=== PATIENT | female | born 1970 | race Caucasian/White ===

== ENCOUNTER → 2018-05-17 14:15 | Outpatient (CLI) | payer BC, SELFPAY ==
[2018-05-22 12:07] LABS: HPV Reflexed? NOT INDICATED
== END ==
PROVIDERS: Visit Provider Obstetrics & Gynecology
DX: Z12.4 Encounter for screening for malignant neoplasm of cervix (principal)
CPT/HCPCS: 88175; G0145

== ENCOUNTER → 2019-01-31 10:02 | Outpatient (CLI) | payer BC, SELFPAY ==
--- NOTE | 2019-01-31 11:12 | NEURO ---
NCS and/or EMG Patient Report HPI: Patient is a 48-year-old female who is complaining of numbness, tingling and pain in her right thumb and index finger as well as in the other fingers. Pain is radiating in the entire arm. Patient also feels that numbness in the fifth digit has been present over a year or so but lately getting worse. Patient wakes up from her sleep due to pain. Patient had cortisone injection in the night wrist which gave her some relief. Patient also complain of some neck pain but did not have any neck injury or fall. Patient had spasms in her neck about a year ago and had chiropractor adjustment. Patient also has some weakness in her right hand and dropping things from her right hand. Physical Exam: Right first dorsal interossei and abductor digiti minimi muscles atrophy. Mild sensory deficit in the right hand in all fingers. Tenderness of the right wrist. Tinel's sign slightly positive at the right wrist. Mild cervical spasm and tenderness in the right side. No tenderness of the right elbow, Tinel's sign negative at right elbow Findings: 1. There is prolongation of distal latencies of right median sensory and motor nerves responses. 2. Right ulnar sensory nerve response could not be obtained. 3. There is prolongation of the distal latency of the right ulnar motor nerve response with slowing of motor nerve conduction velocity below and above the right elbow, 4. There is decreased amplitudes of CMAPs of right proximal ulnar motor nerve response. 5. No evidence of denervation on needle examination of right upper extremity including right cervical paraspinal muscles. Impression: 1. Findings are consistent with moderately severe right median mononeuropathy at wrist due to carpal tunnel syndrome. 2. 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 3. No electrodiagnostic evidence of cervical radiculopathy or brachial plexopathy in right upper extremity. Recommendation: 1. Patient recommended to wear right elbow and hand splints as much as possible. 2. Patient recommended to avoid repetitive right hand movements and avoid sleeping or leaning on right elbow. 3. Although needle examination is normal, seeing the patient's right first dorsal interossei and abductor digiti minimi muscles atrophy, patient may need anterior transposition of right ulnar nerve as well as may need surgical release of carpal tunnel syndrome if symptoms continues.
== END ==
PROVIDERS: Referring Provider Physician Assistant; Visit Provider Physician Assistant
DX: G56.03 Carpal tunnel syndrome, bilateral upper limbs (principal)
CPT/HCPCS: 95886; 95909

== ENCOUNTER → 2019-04-17 14:52 | Outpatient (CLI) | payer BC, SELFPAY ==
[2019-04-17 18:34] LABS: Follicle Stimulating Hormone 102.1 mIU/mL
[2019-04-22 03:07] LABS: Age Gdln ACOG Testing 30-65 (.)
[2019-04-22 15:45] LABS: HPV APTIMA, High Risk Negative (Negative); HPV Reflexed? YES, CHARGE PATIENT
== END ==
PROVIDERS: Referring Provider Obstetrics & Gynecology; Visit Provider Obstetrics & Gynecology
DX: N91.2 Amenorrhea, unspecified (principal)
CPT/HCPCS: 36415; 83001; 87624; 88175; G0145

== ENCOUNTER → 2020-07-19 11:02 | Outpatient (CLI) | payer BC, SELFPAY ==
[2020-07-19 12:23] LABS: Vitamin D,25 Hydroxy 25.1 ng/mL
[2020-07-19 12:40] LABS: T4 Free Direct 0.93 ng/dL (0.76-1.46)
[2020-07-21 12:50] LABS: HPV APTIMA, High Risk Negative (Negative)
[2020-07-22 13:41] LABS: T4 Total, Thyroxin 7.2 ug/dL (4.8-13.9)
== END ==
PROVIDERS: Visit Provider Student in an Organized Health Care Education/Training Program
DX: Z12.4 Encounter for screening for malignant neoplasm of cervix (principal); M54.5 Low back pain; R35.1 Nocturia; N39.0 Urinary tract infection, site not specified
CPT/HCPCS: 36415; 82306; 84436; 84439; 84443; 87086; 87088; 87624; 88175; G0145

== ENCOUNTER → 2021-12-14 | Outpatient (CLI) | payer OTHER, SELFPAY ==
[2021-12-20 17:58] LABS: HPV APTIMA, High Risk Negative (Negative)
== END | disposition home or self-care (01) ==
PROVIDERS: Visit Provider Student in an Organized Health Care Education/Training Program
DX: Z01.419 Encounter for gynecological examination (general) (routine) without abnormal findings (principal)
CPT/HCPCS: 87624; 88175; G0145

== ENCOUNTER 2024-07-06 10:52 | Observation (INO) | payer OTHER, SELFPAY ==
[2024-07-06] VITALS (7 sets, daily range): BP systolic 130–178; BP diastolic 69–102; PULSE 84–96; RESP 17–25; TEMP 36.3–37.1; O2SAT 94–100; BMI 40.5
--- NOTE | 2024-07-06 11:05 | CT_ITS ---
EXAM: CT brain without IV contrast CLINICAL HISTORY: Altered mental status COMPARISON: None TECHNIQUE: Multiple contiguous axial images of the brain were obtained without the administration of intravenous contrast. Two-dimensional coronal and sagittal reformatted images were reconstructed. Low-dose imaging technique was utilized. FINDINGS: No evidence of acute intracranial hemorrhage, midline shift or mass effect. No definite CT evidence of acute territorial cortical infarction. No hydrocephalus. Small chronic lacunar insults in the right caudate head. Cerebral volume is age-appropriate. Calvarium is intact. Paranasal sinuses demonstrate mild bilateral maxillary mucosal thickening. Mastoid air cells are clear. CT/Brain/Head without Contrast IMPRESSION: No acute intracranial abnormality. If there is clinical concern for acute isch emia, MRI is most sensitive. Reading Location: [facility]
--- NOTE | 2024-07-06 11:09 | EX.ED.DYSGE1 ---
HPI History of Present Illness Chief Complaint: Mental Status Change Informant: spouse/S.O. Onset/Context/Timing Onset: Today Context: Sudden Onset Timing: Continuous Quality: Shaking Location: Generalized Worsened by: Nothing Relieved by: Nothing Narrative Narrative: Patient presents with possible seizure that occurred this morning. states that the patient got up earlier this morning and fell. states patient was able to get back up and go back to bed. states that he was getting ready to leave the house and he talked to patient and she was responding appropriately. states that shortly after that, he heard a noise and went back in and noticed that the patient was shaking all over. He states that her left hand was raised up but she was shaking all over. Patient admits to some pain in her chest. states the patient was having some nausea. PFSH PFS Medical History Cardiomyopathy Allergy/AdvReac Type Severity Reaction Status Date / Time No Known Allergies Allergy Verified 07/06/24 11:02 Surgical History no surgical history no surgical history Social History Smoking Status: Never smoker ROS ROS ED Review of Systems ROS Unobtainable: due to mental status Constitutional Constitutional ED: Denies chills or fever(s) ENT ENT ED: Denies rhinorrhea or sore throat Cardiovascular Cardiovascular: Reports chest pain Respiratory/Chest Respiratory/Chest: Denies dyspnea Gastrointestinal Gastrointestinal: Reports nausea; Denies vomiting Neurologic Neurologic: Reports weakness EXAM Physical Exam Const Vital Signs: 07/06/24 10:54 07/06/24 12:07 07/06/24 13:00 Temperature 97.8 F Temperature Source Oral Pulse Rate 86 88 84 Respiratory Rate 20 H 25 H Blood Pressure 164/84 H 150/86 H 143/76 H Blood Pressure Mean 110 107 98 Pulse Ox 94 95 Oxygen Delivery Method Nasal Cannula Nasal Cannula Oxygen Flow Rate (L/min) 2 2 Positive well nourished and well developed General Appearance ED: well developed and NAD HEENT Reports moist mucous membranes HEENT Narrative: There is some ecchymosis and mild edema of the anterior tongue. There are no lacerations noted. There is no bleeding noted. Neck supple and no JVD Resp clear to auscultation bilaterally Auscultation: diminished lung sounds diffuse Cardio regular rate and regular rhythm GI non-tender and non-distended Palpation: soft Neuro Sensorium / Orientation: orientation impaired and other Patient is somnolent on exam but does answer some questions. Motor Exam: general weakness MDM MDM MDM Narrative Medical decision making narrative: Differential diagnosis includes stroke, intracranial bleeding, seizure, electrolyte abnormality, encephalopathy, cardiac dysrhythmia, cardiac ischemia, sepsis, urinary tract infection, diabetic ketoacidosis, and dehydration. CT scan of the brain will be obtained to assess for intracranial bleeding and stroke. EKG will be obtained to assess for cardiac dysrhythmia and cardiac ischemia. Chest x-ray will be obtained to assess for pneumonia and pneumothorax. CBC will be obtained to assess for leukocytosis and anemia. Comprehensive metabolic profile will be obtained to assess for hepatic function, renal function, and electrolyte abnormality. Serum lactate will be obtained to assess for sepsis. PT with INR and PTT will be obtained to assess for coagulopathy. Urinalysis will be obtained to assess for urinary tract infection and hematuria.. Lab Data Attestation: I reviewed the patient's lab results. Lab results narrative: CBC was reviewed and was essentially within normal limits. Comprehensive metabolic profile was reviewed. Glucose was mildly elevated at 143. AST was 42 and ALT was 38. The remainder is within normal limits. PT with INR and PTT were reviewed and were within normal limits. Initial high-sensitivity troponin was reviewed and was less than 6. Urinalysis was reviewed. There is no evidence of urinary tract infection or hematuria. Serum lactate was reviewed and was normal at 1.4. Labs: Laboratory Results - last 24 hr 07/06/24 07/06/24 07/06/24 10:58 12:20 13:21 WBC 8.2 RBC 3.89 L Hgb 12.6 Hct 36.9 L MCV 94.9 MCH 32.4 H MCHC 34.1 RDW Std Deviation 43.6 RDW Coeff of José Manuel 12.5 Plt Count 194 MPV 9.8 Immature Gran % (Auto) 1.200 H Neut % (Auto) 82.7 H Lymph % (Auto) 9.7 L [place] % (Auto) 4.9 Eos % (Auto) 1.0 Baso % (Auto) 0.5 Absolute Neuts (auto) 6.8 Absolute Lymphs (auto) 0.80 L Nucleated RBC % 0 PT 13.3 INR 1.0 APTT 22.0 L Sodium 135 Potassium 4.3 Chloride 100 Carbon Dioxide 23.6 Anion Gap 12 BUN 12 Creatinine 0.70 Estim Creat Clear Calc 119.11 Est GFR (MDRD) Non-Af 103 BUN/Creatinine Ratio 17.4 Glucose 143 H Lactic Acid 1.4 Calcium 8.7 Total Bilirubin 0.40 AST 42 H ALT 38 H Alkaline Phosphatase 91 Troponin T High Sens < 6 Troponin T Hi Sens 2 Hr < 6 Total Protein 6.8 Albumin 4.4 Globulin 2.4 Albumin/Globulin Ratio 1.9 Urine Color Yellow Urine Clarity Clear Urine pH 5.0 Ur Specific [place] 1.025 Urine Protein 15 H Urine Glucose (UA) Normal Urine Ketones Negative Urine Occult Blood 50 H Urine Nitrite Negative Urine Bilirubin Negative Urine Urobilinogen Normal Ur Leukocyte Esterase Negative Urine RBC 0-5 SEEN Urine WBC 0-5 SEEN Ur Squamous Epith Cells 0-5 SEEN Urine Bacteria 0 SEEN Urine Mucus 0 SEEN Radiography Diagnostic Testing: Clinical Impression(s) from Imaging Studies Brain CT 07/06/24 11:05 IMPRESSION: No acute intracranial abnormality. If there is clinical concern for acute ischemia, MRI is most sensitive. Reading Location: [facility] Chest X-Ray 07/06/24 11:18 IMPRESSION: No acute airspace abnormality. Reading Location: [facility] Portable 1 view chest x-ray was obtained. On my independent interpretation, lung orona are clear. There is normal cardiac silhouette. Bony thorax is normal. There is no acute process noted. Radiologist also interpreted the x-ray and agrees. CT scan of the brain was obtained. There is no acute intracranial abnormality. This was interpreted by the radiologist and was also independently reviewed by myself. EKG Initial EKG: Attestation: I personally reviewed and interpreted this EKG as follows: Interpretation: Sinus Rhythm (87) and Non-Specific ST Changes Comments: EKG was obtained. On my independent interpretation, it showed a normal sinus rhythm with a rate of 87. ND interval was borderline at 204 ms. QRS interval was normal at 114 ms. QTc interval was slightly prolonged at 495 ms. [place] was normal. There are nonspecific ST-T wave changes. Prior EKG tracings: not available for review Prior: No Prior Treatment and Re-Evaluation :: On reevaluation, patient is more awake and alert. Patient was advised that this could possibly have been from a seizure. Patient denies any history of seizure disorder. Because of this, I recommend admission to the hospital for further evaluation. Patient and family understand and are agreeable with the plan. Case was discussed with the hospitalist. He will admit the patient for observation. All questions were answered. Discharge Plan Triage Chief Complaint: Mental Status Change ED Provider: Darryl Oliveira Dx/Rx/DC Orders Clinical Impression: New onset seizure, Mental status change resolved Primary Care Provider: Gage Owen Referrals: Gage Owen PA [Primary Care Provider] - Print Language: [place] Disposition Disposition: Acute Care Hospital [facility]
--- NOTE | 2024-07-06 11:18 | RAD_ITS ---
PROCEDURE: Chest radiograph REASON FOR EXAM: CHEST PAIN TECHNIQUE: Frontal view of the chest. COMPARISON: None. FINDINGS: Cardiomediastinal silhouette is within normal limits. Lungs are clear. No sizable pneumothorax. RAD/Chest 1 View (Portable) IMPRESSION: No acute airspace abnormality. Reading Location: [facility]
[2024-07-06] MEDS: 0.9% Normal Saline (1000mL) 1,000 ML 1000 ML IV (11:29)
[2024-07-06 11:32] LABS: Absolute Neutrophil Count 6.8 X10^3/uL (2.0-7.7); Basophil# 0.04 X10^3/uL; Basophil% 0.5 % (0-1); Eosinophil# 0.08 X10^3/uL; Hematocrit 36.9 % (37-47); Hemoglobin 12.6 g/dL (12.0-15.0); Lymphocyte % 9.7 % (19-41); Mean Corp Hgb Conc 34.1 g/dL (32-36); Mean Corpuscular Hgb 32.4 pg (27.0-32.0); Mean Corpuscular Volume 94.9 fL (81-99); Mean Platelet Vol. 9.8 fl (6.2-12.0); Monocyte% 4.9 % (0-10); NRBC Flagged by Analyzer 0 % (0-5); Neutrophil # 6.79 X10^3/uL (2.7-7.7); Neutrophil % 82.7 % (47-70); Platelet Count 194 K/mm3 (150-450); RBC Distribution Width CV 12.5 % (11.6-14.6); RBC Distribution Width SD 43.6 fl (35.1-43.9); Red Blood Count 3.89 M/mm3 (4.2-5.4); White Blood Count 8.2 K/mm3 (4.4-11.0)
--- NOTE | 2024-07-06 11:37 | EKG12_ITS ---
Test Reason : ALT MENTAL STATUS Blood Pressure : */* mmHG Vent. Rate : 87 BPM Atrial Rate : 87 BPM P-R Int : 204 ms QRS Dur : 114 ms QT Int : 412 ms P-R-T Axes : 58 0 10 degrees QTcB Int : 495 ms Normal sinus rhythm Incomplete left bundle branch block Nonspecific T wave abnormality Prolonged QT Abnormal ECG Confirmed by ASHTYN LYNCH, JUAN CARLOS ([id number]), metropolitan editor LEESA MCKEON ([id number]) on 07/07/2024 8:21:54 AM Referred By: Confirmed By: JUAN CARLOS CHAMORRO MD
[2024-07-06 11:48] LABS: Prothrombin Time (Protime)PT. 13.3 SECONDS (11.7-14.9)
[2024-07-06 11:54] LABS: Troponin T High Sensitivity < 6 ng/L (<=14)
[2024-07-06 11:55] LABS: ALB/GLOB Ratio 1.9 RATIO (0.9-2.4); AST(SGOT) 42 U/L (<=31); Alanine Aminotransfer ALT/SGPT 38 U/L (<=34); Albumin, Serum 4.4 g/dL (3.5-5.0); Alkaline Phosphatase 91 U/L (35-104); Anion Gap 12 (5-15); BUN 12 mg/dL (4-19); BUN/Creat Ratio 17.4 RATIO (10-20); Calcium,Total 8.7 mg/dL (7.6-11.0); Carbon Dioxide 23.6 mmol/L (21.0-32.0); Chloride 100 mmol/L (98-108); EST Glomerular Filtration Rate 103 (>60); Estimated Creatinine Clearance 119.11 ml/min (50-250); Globulin 2.4 g/dL (2.2-4.2); Glucose 143 mg/dL (70-99); Lactic Acid 1.4 mmol/L (0.0-2.0); Potassium 4.3 mmol/L (3.3-5.1); Protein, Total 6.8 g/dL (5.9-8.4); Sodium Level 135 mmol/L (133-145)
[2024-07-06 12:33] LABS: Bacteria 0 SEEN /hpf (None Seen); Mucous, Urine 0 SEEN /hpf (<or=2+)
[2024-07-06 12:37] LABS: Color, Urine Yellow (Yellow); Glucose, Dipstick Normal (Normal); Ketone-Dipstick Negative (Negative); Leukocyte Esterase-Dipstick Negative /ul (Negative); Nitrite-Dipstick Negative (Negative); Occult Blood-Urine 50 /ul (Negative); Protein-Dipstick 15 mg/dl (Negative); Specific Gravity, Urine 1.025 (1.002-1.030); Urine Bilirubin Dipstick Negative (Negative); Urine Clarity Clear (Clear); Urine Urobilinogen Normal (Normal)
[2024-07-06 13:09] LABS: Red Blood Cells-Urine 0-5 SEEN /hpf (0-5); White Blood Cells 0-5 SEEN /hpf (0-5)
[2024-07-06 13:11] LABS: Squamous Epithelial Cells - UA 0-5 SEEN /hpf (5-10)
[2024-07-06 13:41] LABS: Troponin T High Sens 2 HR < 6 ng/L (<=14)
--- NOTE | 2024-07-06 13:55 | PCM.HP.STD ---
HPI - General General Date of Service: 07/06/24 Chief Complaint: unresponsive. HPI Narrative ZULMA ISLAS, is a 54 F who presents after witnessed seizure. Patient was in her normal state of health and got up and then her heard a thud. Patient was on the ground with her left arm raised uncontrollably and shaking diffusely. Patient was confused afterwards and not even knowing what today was, which is her birthday. Patient's mental status did slowly improve. Patient has never had a seizure before. Has been no changes to any medications. Patient normally drinks alcohol 3-5 drinks per night and then last night had around 8-10. Patient has been sleeping well. No recent head trauma. [facility] Medical History (Updated 07/06/24 @ 13:[address] Darryl Lau DO) Seizure Cardiomyopathy Allergy/AdvReac Type Severity Reaction Status Date / Time No Known Allergies Allergy Verified 07/06/24 11:02 Family History (Updated 07/06/24 @ 13:[address] Darryl Lau DO) Other Seizures VTE (venous thromboembolism) Surgical History no surgical history Social History (Updated 07/06/24 @ 13:[address] Darryl Lau DO) Smoking Status: Never smoker alcohol intake: current alcohol intake frequency: 3 or more drinks per day substance use type: does not use ROS ROS Narrative Having back pain after this event. All review of systems were negative except as mentioned above in the history of present illness and the other review of systems. Vital Signs Vital Signs Vital Signs: 07/06/24 10:54 07/06/24 12:07 07/06/24 13:00 Temperature 36.6 C Temperature Source Oral Pulse Rate 86 88 84 Respiratory Rate 20 H 25 H Blood Pressure 164/84 H 150/86 H 143/76 H Blood Pressure Mean 110 107 98 Pulse Ox 94 95 Oxygen Delivery Method Nasal Cannula Nasal Cannula Oxygen Flow Rate (L/min) 2 2 Weight Weight: 114 kg Body Mass Index (BMI) 40.5 Physical Exam Narrative - Physical Exam General: Alert, Oriented x3, Cooperative HEENT: Atraumatic, PERRLA, EOMI, Normocephalic. Bruising on both sides of her tongue. Oral: Moist Mucosa, No Gingival or Mucosal Lesions/ Ulcerations Neck: Supple, No JVD, Negative Carotid Bruits Lungs: Clear to auscultation, Normal air movement Cardiovascular: Regular rate, Normal S1, Normal S2, No murmurs Abdomen: Bowel Sounds Present, Soft, Non Tender, Non-Distended, No Hepato-splenomegaly Extremities: No clubbing, No cyanosis, No edema, Capillary Refill Less than 3 Seconds Skin: No rashes, No breakdown Musculoskeletal: No Tenderness to Palpation of Joints or Extremities Neurological: Neuro grossly intact Psych/Mental Status: Normal Affect, Appropriate Results Lab / Micro Data 07/06/24 10:58 07/06/24 10:58 Labs: Laboratory Results - last 24 hr 07/06/24 10:58: WBC 8.2, RBC 3.89 L, Hgb 12.6, Hct 36.9 L, MCV 94.9, MCH 32.4 H, MCHC 34.1, RDW Std Deviation 43.6, RDW Coeff of José Manuel 12.5, Plt Count 194, MPV 9.8, Immature Gran % (Auto) 1.200 H, Neut % (Auto) 82.7 H, Lymph % (Auto) 9.7 L, [place] % (Auto) 4.9, Eos % (Auto) 1.0, Baso % (Auto) 0.5, Absolute Neuts (auto) 6.8, Absolute Lymphs (auto) 0.80 L, Nucleated RBC % 0, PT 13.3, INR 1.0, APTT 22.0 L, Sodium 135, Potassium 4.3, Chloride 100, Carbon Dioxide 23.6, Anion Gap 12, BUN 12, Creatinine 0.70, Estim Creat Clear Calc 119.11, Est GFR (MDRD) Non-Af 103, BUN/Creatinine Ratio 17.4, Glucose 143 H, Lactic Acid 1.4, Calcium 8.7, Total Bilirubin 0.40, AST 42 H, ALT 38 H, Alkaline Phosphatase 91, Troponin T High Sens < 6, Total Protein 6.8, Albumin 4.4, Globulin 2.4, Albumin/Globulin Ratio 1.9 07/06/24 12:20: Urine Color Yellow, Urine Clarity Clear, Urine pH 5.0, Ur Specific [place] 1.025, Urine Protein 15 H, Urine Glucose (UA) Normal, Urine Ketones Negative, Urine Occult Blood 50 H, Urine Nitrite Negative, Urine Bilirubin Negative, Urine Urobilinogen Normal, Ur Leukocyte Esterase Negative, Urine RBC 0-5 SEEN, Urine WBC 0-5 SEEN, Ur Squamous Epith Cells 0-5 SEEN, Urine Bacteria 0 SEEN, Urine Mucus 0 SEEN 07/06/24 13:21: Troponin T Hi Sens 2 Hr < 6 Imaging Radiology Impression Brain CT 07/06/24 11:05 IMPRESSION: No acute intracranial abnormality. If there is clinical concern for acute ischemia, MRI is most sensitive. Reading Location: [facility] Chest X-Ray 07/06/24 11:18 IMPRESSION: No acute airspace abnormality. Reading Location: [facility] Assessment & Plan Assessment/Plan (1) Seizure: PLAN: New onset. Patient had a seizure today and then had a postictal period. Patient's mental status is back to her baseline. This was witnessed by her . Patient has clinical evidence that she has seizure as she had been on her tongue and had bruising bilaterally. No clear etiology such as drugs, sleep deprivation, trauma. Patient does drink but she actually drank more than she usually does last night so I do not feel that this is an alcohol withdrawal seizure. Hold off on antiepileptics at this time unless she has recurrent seizure then load and would start levetiracetam. Patient had as needed lorazepam if she has recurrent seizures. Check an MRI of the brain. Consult [facility] teleneurology. Did not also discussed with the patient that she is going to be restricted in regards to her activities based on the seizure. That being at least 6 months seizure-free of no driving additionally operating heavy machinery. Additionally she will not be able to work at heights nor be swimming on her own or taking baths. PLAN: Plan Obesity class III: Complicates care and recovery. Alcohol abuse: Patient typically drinks 3-5 drinks per day. As above, do not feel that this is an alcohol withdrawal seizure as she drank more last night than she typically does. Add multivitamin. VTE prophylaxis: Low risk as she is currently observation status at this time. CODE STATUS: Addressed with patient. Patient wishes to be full code Discussed with the patient's as well as her sister at bedside. Charges/Coding Visit Charges Inpatient E&M: 00287 Init Hosp L3
[2024-07-06] MEDS: 0.9% Normal Saline (1000mL) 1,000 ML 150 ML IV (16:07)
[2024-07-06] MEDS: Acetaminophen 325 MG Tablet 650 MG PO (19:45)
[2024-07-06 19:57] LABS: Troponin T High Sens 4 HR 7 ng/L (<=14)
[2024-07-06] MEDS: Lidocaine 2% Viscous15 ML UDC 5 ML PO (22:04)
[2024-07-07] MEDS: Ibuprofen 600 MG Tablet PO ×2 (00:41→08:19)
[2024-07-07 03:23] VITALS: BP 133/85; PULSE 87; RESP 17; TEMP 36.1; O2SAT 98
[2024-07-07 08:14] VITALS: BP 142/82; PULSE 74; RESP 18; TEMP 36.8; O2SAT 97
--- NOTE | 2024-07-07 08:58 | NEURO.CONS ---
Assessment and Plan: Neuro Assessment/Plan ZULMA ILSAS is a 54 F with a past medical history of anxiety and hypertension, being evaluated by Teleneurology for new onset seizure. Simiology sounds typical for seizure activity. On exam, no focal deficits. Concerning symptoms include possible seizure out of sleep, MRI Brain with microvascular disease. EEG is normal with no epileptiform discharges. She is on a SSRI which could lower seizure threshold but is not highly associated with seizures in studies. Discussed whether or not she would like to start an ASM and patient was on the fence but was amenable to starting one to avoid future seizures and interruption to her work. If no provoking factors are found, recommend starting an ASM Plan: - UA and UDS - ok to start Vimpat 100mg BID, recommend followup with her PCP with arepeat ECG in 2 weeks to eval the UT interval Reviewed seizure precautions with the patient. I personally attended this patient and spent a total time of 45minutes evaluating this patient including clinical assessment, review of chart, medical history imaging, and determining appropriate treatment and workup. HPI Consult Data Date of Consult: 07/07/24 HPI Narrative HPI Narrative: ZULMA ISLAS, is a 54 F who presents after witnessed seizure. Patient was in her normal state of health and got up and then her heard a thud. Patient was on the ground with her left arm raised uncontrollably and shaking diffusely. Patient was confused afterwards and not even knowing what today was, which is her birthday. Patient's mental status did slowly improve. Patient has never had a seizure before. Has been no changes to any medications. Patient normally drinks alcohol 3-5 drinks per night and then last night had around 8-10. Patient has been sleeping well. No recent head trauma. Neurologic History: Her viewed the event. She remembers going to bed when this happened. NEver had seizure before, never had them as a kid. Her dad was diagnosed with seizures but when he was older. Pt remember slightly waking up with the squad paramedics at the house. She has been on fluvoxamine for the last 6 months. She does take a probiotic, Vit b12, herbal teas. Does drink daily beer, will drink 3 beers a night. She did note that may have drunk more than usual that night when she had the event but she was drinking lot of water. Denies recreational medication or drug usage. [facility] Medical History (Updated 07/06/24 @ 13:[address] Darryl Lau DO) Seizure Cardiomyopathy Home Medications ?Medication ?Instructions ?Recorded ?Last Taken ?Type fluticasone propionate 230 1 puff inhalation BID 07/06/24 Unknown History mcg-salmeterol 21 mcg/actuation HFA inhaler (Advair HFA) fluvoxamine 25 mg tablet 12.5 mg PO QHS depression 07/06/24 Unknown History losartan 50 mg tablet 50 mg PO DAILY cardiomyopathy 07/06/24 Unknown History metoprolol succinate 100 mg 100 mg PO DAILY cardiomyopathy 07/06/24 Unknown History tablet,extended release 24 hr lacosamide 100 mg tablet (Vimpat) 100 mg PO BID #60 tabs 07/07/24 Unknown Rx Allergy/AdvReac Type Severity Reaction Status Date / Time No Known Allergies Allergy Verified 07/06/24 11:02 Family History (Updated 07/06/24 @ 13:[address] Darryl Lau DO) Other Seizures VTE (venous thromboembolism) Surgical History no surgical history Social History (Updated 07/06/24 @ 13:[address] Darryl Lau DO) Smoking Status: Never smoker alcohol intake: current alcohol intake frequency: 3 or more drinks per day substance use type: does not use Vital Signs Vital Signs Vital Signs: 07/06/24 10:54 07/06/24 12:07 07/06/24 13:00 Temperature 97.8 F Temperature Source Oral Pulse Rate 86 88 84 Pulse Strength Respiratory Rate 20 H 25 H Respiratory Effort Respiratory Depth Respiratory Pattern Blood Pressure 164/84 H 150/86 H 143/76 H Blood Pressure Mean 110 107 98 Blood Pressure Source Blood Pressure Position Blood Pressure Location Pulse Ox 94 95 Oxygen Delivery Method Nasal Cannula Nasal Cannula Oxygen Flow Rate (L/min) 2 2 07/06/24 14:14 07/06/24 14:16 07/06/24 15:05 Temperature 97.4 F L 98.2 F Temperature Source Oral Pulse Rate 87 96 89 Pulse Strength Respiratory Rate 19 H 18 17 Respiratory Effort Respiratory Depth Respiratory Pattern Blood Pressure 178/102 H 149/69 H 147/84 H Blood Pressure Mean 127 95 105 Blood Pressure Source Monitor Blood Pressure Position Semi-Fowlers Blood Pressure Location Left Arm Pulse Ox 100 98 100 Oxygen Delivery Method Nasal Cannula Nasal Cannula Oxygen Flow Rate (L/min) 2 2 07/06/24 16:00 07/06/24 21:40 07/06/24 22:00 Temperature 98.8 F Temperature Source Temporal Pulse Rate 85 Pulse Strength Normal (2+) Respiratory Rate 17 Respiratory Effort Normal Non-Labored Respiratory Depth Normal Respiratory Pattern Normal Blood Pressure 130/82 H Blood Pressure Mean 98 Blood Pressure Source Monitor Blood Pressure Position Semi-Fowlers Blood Pressure Location Left Arm Pulse Ox 98 Oxygen Delivery Method Nasal Cannula Room Air Oxygen Flow Rate (L/min) 2 07/06/24 22:00 07/07/24 03:23 07/07/24 03:24 Temperature 97 F L Temperature Source Temporal Pulse Rate 87 Pulse Strength Respiratory Rate 17 Respiratory Effort Normal Non-Labored Normal Non-Labored Respiratory Depth Normal Normal Respiratory Pattern Normal Normal Blood Pressure 133/85 H Blood Pressure Mean 101 Blood Pressure Source Monitor Blood Pressure Position Semi-Fowlers Blood Pressure Location Left Arm Pulse Ox 98 Oxygen Delivery Method Room Air Room Air Room Air Oxygen Flow Rate (L/min) 07/07/24 08:09 07/07/24 08:14 Temperature 98.3 F Temperature Source Oral Pulse Rate 74 Pulse Strength Respiratory Rate 18 Respiratory Effort Normal Non-Labored Respiratory Depth Normal Respiratory Pattern Normal Blood Pressure 142/82 H Blood Pressure Mean 102 Blood Pressure Source Blood Pressure Position Blood Pressure Location Pulse Ox 97 Oxygen Delivery Method Room Air Room Air Oxygen Flow Rate (L/min) Weight Weight: 113.9 kg Body Mass Index (BMI) 40.5 EEG Results Procedure Details EEG Procedure Details: ZULMA ISLAS is a 54 year old F with a past medical history of , who presents for evaluation of Electroencephalogram on DATE at TIME NIHSS NIHSS Nursing Documentation NIHSS Nursing Documentation: NIH Stroke Scale Start: 07/06/24 11:03 Freq: Status: Discharge Protocol: Activity Type Activity Date Activity User E-sign Co-sign Detail Recorded Client Recorded Date Recorded By Document 07/06/24 11:03 CD [id number] 07/06/24 11:05 CD 07/06/24 11:03 NIH Stroke Scale [NIHSS] A score of 0 is normal or asymptomatic . Total possible score is 42. Inpatient: RN or Physician to activate a stroke alert for onset of new stroke symptoms or with NIHSS increase >/= 3 points. Following change in neurological status, NIHSS will be performed per physician order or more frequently PRN. -1a. Level of Consciousness Not alert; Arouse to repeat stimuli or strong/pain stimuli if obtunded -1b. LOC Questions Answers one question correctly. -1c. LOC Commands Performs neither task correctly. -2. Best Gaze Normal -3. Visual No visual loss -4. Facial Palsy Normal symmetrical movements -5a. Left Arm No effort against gravity ; arm falls -5b. Right Arm No effort against gravity ; arm falls -6a. Left Leg No effort against gravity ; leg falls to bed immediately -6b. Right Leg No effort against gravity ; leg falls to bed immediately -7. Limb Ataxia Present in 2 limbs -8. Sensory Normal; no sensory loss -9. Best Language Mild-to- moderate aphasia; -10. Dysarthria Mild-to- moderate dysarthria; -11. Extinction and Inattention No abnormality -Total 21 Query Text:A score of 0 is normal or asymptomatic. Total possible score is 42 . ED: Notify Physician for NIHSS increase by > / = 3 points. Inpatient: RN or Physician to activate a stroke alert for NIHSS increase of > / = 3 points. Physical Exam Narrative -? General: Laying comfortably in bed; in no acute distress. -? HENT: Normal oropharynx and mucosa. Normal external appearance of ears and nose. Exophthalmos. -? Neck: Supple, no pain or tenderness -? CV:? No peripheral edema. -? Pulmonary:? Normal respiratory effort. -? Ext: No cyanosis, edema, or deformity -? Skin: No rash. Normal palpation of skin.? -? Musculoskeletal: full range of motion; no joint tenderness. Normal digits and nails by inspection. No clubbing. -? NEURO: -? Mental Status: The patient was alert and oriented to time, place, and person. Normal recent/remote memory, concentration, and general fund of knowledge. -? Language: speech is .? Naming, repetition, fluency, and comprehension intact. -? Cranial Nerves: PERRL mm/brisk. EOMI, visual orona full, no facial asymmetry, facial sensation intact, hearing intact, tongue midline, no evidence of atrophy or fibrillations. As performed by the nurse/BRONWYN Sternocleidomastoid and trapezius were equally strong. Soft palate raises equally, no uvular deviations -? Motor: normal bulk, tone, and strength throughout. No pronator drift or satelliting. Upper and lower extremities equal bilaterally. -? Detailed strength exam as performed by the nurse/BRONWYN and witnessed by the physician: R L SA EE EF WE WF Stereoptic Projection Topographer HF KE KF DF PF -? Detailed reflex exam as performed by the nurse/BRONWYN and witnessed by the physician: R L Biceps 1 1 Patellar 3 3 Ankle Babinski down down -? Tone: is normal and bulk is normal -? Sensation- Intact to light touch bilaterally -? Coordination: No dysmetria on [id number], finger follow finger or [id number]. -? Gait- Gait initiation was normal. Narrow base with good heel strike and stride length was observed during ambulation. Turns were in stride. Patient was able to walk normally in tandem. Romberg was normal. Lab / Micro Data 07/06/24 10:58 07/06/24 10:58 Labs: Laboratory Results - last 24 hr 07/06/24 10:58: WBC 8.2, RBC 3.89 L, Hgb 12.6, Hct 36.9 L, MCV 94.9, MCH 32.4 H, MCHC 34.1, RDW Std Deviation 43.6, RDW Coeff of José Manuel 12.5, Plt Count 194, MPV 9.8, Immature Gran % (Auto) 1.200 H, Neut % (Auto) 82.7 H, Lymph % (Auto) 9.7 L, [place] % (Auto) 4.9, Eos % (Auto) 1.0, Baso % (Auto) 0.5, Absolute Neuts (auto) 6.8, Absolute Lymphs (auto) 0.80 L, Nucleated RBC % 0, PT 13.3, INR 1.0, APTT 22.0 L, Sodium 135, Potassium 4.3, Chloride 100, Carbon Dioxide 23.6, Anion Gap 12, BUN 12, Creatinine 0.70, Estim Creat Clear Calc 119.11, Est GFR (MDRD) Non-Af 103, BUN/Creatinine Ratio 17.4, Glucose 143 H, Lactic Acid 1.4, Calcium 8.7, Total Bilirubin 0.40, AST 42 H, ALT 38 H, Alkaline Phosphatase 91, Troponin T High Sens < 6, Total Protein 6.8, Albumin 4.4, Globulin 2.4, Albumin/Globulin Ratio 1.9 07/06/24 12:20: Urine Color Yellow, Urine Clarity Clear, Urine pH 5.0, Ur Specific [place] 1.025, Urine Protein 15 H, Urine Glucose (UA) Normal, Urine Ketones Negative, Urine Occult Blood 50 H, Urine Nitrite Negative, Urine Bilirubin Negative, Urine Urobilinogen Normal, Ur Leukocyte Esterase Negative, Urine RBC 0-5 SEEN, Urine WBC 0-5 SEEN, Ur Squamous Epith Cells 0-5 SEEN, Urine Bacteria 0 SEEN, Urine Mucus 0 SEEN 07/06/24 13:21: Troponin T Hi Sens 2 Hr < 6 07/06/24 19:15: Troponin T Hi Sens 4Hr 7 Imaging Radiology Impression Brain CT 07/06/24 11:05 IMPRESSION: No acute intracranial abnormality. If there is clinical concern for acute ischemia, MRI is most sensitive. Reading Location: [facility] Chest X-Ray 07/06/24 11:18 IMPRESSION: No acute airspace abnormality. Reading Location: [facility] Active Medications Active Medications Active Medications: Current Medications Generic Name Dose Route Start Last Admin Trade Name Freq PRN Reason Stop Dose Admin Acetaminophen 650 mg 07/06/24 15:07 07/06/24 19:45 Acetaminophen 325 Mg Tablet PO 650 mg Q6H PRN PRN Administration Pain 1-10 Or Fever >100.7 Sodium Chloride 100 mls @ 15 mls/hr 07/06/24 15:09 IV .Q6H40M PRN Saline Flush Sodium Chloride 100 mls @ 15 mls/hr 07/06/24 15:09 IV .Q6H40M PRN Additional IVPB Infusion Ibuprofen 600 mg 07/06/24 15:07 07/07/24 08:19 Ibuprofen 600 Mg Tablet PO 600 mg Q6H PRN PRN Administration Pain Score 1-10 Lidocaine HCl 5 ml 07/06/24 20:54 07/06/24 22:04 Lidocaine 2% [id number] Ml Udc PO 5 ml Q4H PRN PRN Administration Pain Score 1-10 Lorazepam 2 mg 07/06/24 15:07 Lorazepam 2 Mg/Ml Wch Syringe IV Q4H PRN PRN SEIZURES Multivitamins 1 tablet 07/07/24 12:00 Multivitamins,Therapeutic Tablet PO LUNCH DEBORA Ondansetron HCl 4 mg 07/06/24 15:07 Ondansetron 4 Mg/2 Ml Vial IV Q8H PRN PRN NAUSEA/VOMITING Sodium Chloride 10 - 40 ml 07/06/24 15:09 0.9% Saline Lock 10 Ml Syringe IV UD PRN SALINE FLUSH
--- NOTE | 2024-07-07 09:10 | MRI_ITS ---
PROCEDURE: BRAIN W/WO CONTRAST (MRIBRWW), 07/07/2024 REASON FOR EXAM: SEIZURE COMPARISON: 07/06/2024 TECHNIQUE: Multisequence multiplanar MRI brain was performed with and without intravenous contrast. Contrast: 20 mL Clariscan. FINDINGS: Variable overall mild motion limitation. Coronal T2 sequence is mild/moderately motion degraded. Coronal thin T1 sequence is mild/moderately degraded by signal loss. Cerebrum: Small remote lacunar infarcts in the right caudate cranially. No acute infarct, appreciable intracranial hemorrhage, or mass. Mild/moderate supratentorial white matter abnormalities, nonspecific but compatible with chronic microvascular ischemic changes. Hippocampi are symmetric in size and signal intensity. Cerebellum: Unremarkable. Brainstem: Unremarkable. Ventricles/extra-axial spaces: Cavum septum pellucidum, normal variant. No hydrocephalus. Major flow voids: Grossly unremarkable within limits of nondedicated technique. Paranasal sinuses: Mild/moderate right and mild left maxillary paranasal sinus disease.. Mild mucosal thickening in the ethmoid air cells. Minimal mucosal thickening in the left sphenoid sinus. Scalp/calvarium: Unremarkable. Orbits: Suspect remote left orbital floor fracture with herniation of fat into the cranial aspect of the left maxillary sinus, better depicted on comparison CT. Other: No abnormal enhancement. MRI/Brain W/WO Contrast IMPRESSION: 1. No specific evidence of an acute or suspicious intracranial process. Small remote lacunar infarcts in the right caudate and mild/moderate supratentorial white matter presumed chronic microvascular ischem ic changes. 2. Maxillary predominant paranasal sinus disease. 3. Additional description as above. Reading Location: [id number]
[2024-07-07 10:16] VITALS: PULSE 74
[2024-07-07] MEDS: Losartan Potassium 50 MG Tablet PO (10:16)
[2024-07-07] MEDS: Metoprolol(XL)Succ 100 MG Tablet PO (10:16)
--- NOTE | 2024-07-07 13:50 | CASEMGMT ---
RN CM into pt room, pt states she lives with and son at home. Denies having any DME, I at baseline. denies any DC needs at this time.
[2024-07-07 14:07] LABS: TCA Internal Control -Neg LINE = VALID (- VALID); TCA Urine Drug Screen Negative (<1000 ng/mL)
--- NOTE | 2024-07-07 14:23 | DCINST_ITS ---
Discharge Instructions Diet Discharge Diet: No restrictions DC O2, CPAP, BIPAP needs Home O2 Discharge instructions: No Dressing / Incision Discharge Activity: Return to Normal Activity and May Not Drive (Until allowed by your neurologist) Weight Bearing Status: Full weight bearing Follow Up Care Test Results: Test results from this visit will be discussed in further detail at your follow- up appointment, if applicable. Discharge Plan Admission Admit Date/Time: 07/06/24 13:52 Primary Reason for Your Visit: New onset seizure disorder Attending Provider: Doni Monroe Primary Care Provider: Gage Owen Consulting Providers: Shade Hutson; Krishna Donahue; Mitra Mckeon; Ashley Gomez; Kalina Gomez; Cameron Javier; Lili Owens; Kush Hooks; Adrien Hobbs; Nael Rangel; Katie Smith; Jigar Avendaño; Germaine Romero; Ji Avitia; Earline Iyer; Usman Noe; Ba Duke; Hitesh Maradiaga; Irlanda Palumbo; Nicola Cooper; Darryl Lau; Esperanza Mack; Ranjan Troy; Rosalia Keene; CADENCE MATTA; Dinesh Keen; Dorene Miles Instructions Additional Instructions / Restrictions: He will need to see a neurologist in 6 to 8 weeks, Dr. Wallace will make this appointment for you at your office visit Discharge Orders/Prescriptions Prescriptions: New lacosamide [Vimpat] 100 mg tablet 100 mg PO BID Qty: 60 0RF Continued losartan 50 mg tablet 50 mg PO DAILY metoprolol succinate 100 mg tablet extended release 24 hr 100 mg PO DAILY fluvoxamine 25 mg tablet 12.5 mg PO QHS fluticasone propion-salmeterol [Advair HFA] 230-21 mcg/actuation HFA aerosol inhaler 1 puff INHALATION BID Referrals / Follow Up: Campbell Wallace MD [Non-Staff] - See Referral Note (In 2 weeks, you will need an EKG at that time and an appointment should be made by Dr. Wallace for you to see a neurologist) Gage Owen PA [Primary Care Provider] - Disposition Disposition (needs filled in before D/C Order can be placed): Home, Self Care
--- NOTE | 2024-07-07 14:36 | PCM.DC.SUM ---
Providers Date of Admission: 07/06/24 Date of Discharge: 07/07/24 Primary Care Physician: BEHZAD Parsons Consultations 07/06/24 15:07 Neurology [Consult: Tele-Neurology] Routine Consulting Provider: [facility] Reason for Consult: seizure EMERGENT Consult: No MD Notified: Yes Date Notified: 07/06/24 Time Notified: 14:00 Method of Notification: Answering Service Nursing Unit Staff Notify [facility] of Tele-Neurology Consult: Yes Reason For Visit: SEIZURE Diagnosis Discharge Diagnosis (1) Seizure: Status: Acute Code(s): R56.9 - Unspecified convulsions Plan 1. New onset seizure disorder #2 chronic depression #3 chronic cardiomyopathy-unspecified #4 class III obesity Medications at Discharge Home Medications fluticasone propionate 230 mcg-salmeterol 21 mcg/actuation HFA inhaler (Advair HFA) 1 puff inhalation BID 07/06/24 fluvoxamine 25 mg tablet 12.5 mg PO QHS depression 07/06/24 losartan 50 mg tablet 50 mg PO DAILY cardiomyopathy 07/06/24 metoprolol succinate 100 mg tablet,extended release 24 hr 100 mg PO DAILY cardiomyopathy 07/06/24 lacosamide 100 mg tablet (Vimpat) 100 mg PO BID #60 tabs 07/07/24 Hospital Course Operations None Procedures Electroencephalogram Summary of Care Provided Minutes Spent on Discharge: 31 Hospital Course: This 54-year-old white female was seen in the emergency room at [facility] after being brought to the emergency room by squad after the saw what appeared to be seizure activity while the patient was lying in bed early in the morning. Labs were obtained, patient's CBC was essentially within normal limits, glucose was mildly elevated 143, AST was 42 and ALT was 38. Urinalysis was unremarkable. Brain CT was performed and showed no acute intercranial abnormality. Patient was placed in observation status on PCU, she was seen in consultation by teleneurology, teleneurology requested that a talk screen and EEG be ordered, MRI of the brain was performed which showed 2 small lacunar infarcts which were not acute. Teleneurology talked with the patient and decided that the patient would be placed on Vimpat, teleneurology did not recommend placing the patient on aspirin or a statin as the small lacunar infarcts did not warrant this. On 07/07/2024, patient was seen and examined: On examination she appeared in good health and spirits, she does not appear to be in any distress. Vital signs as documented. Skin warm and dry and without overt rashes. Neck without JVD, thyroid appears normal, trachea is midline, neck is supple. Lungs clear, normal air movement was noted. Heart exam notable for regular rhythm, normal sounds and absence of murmurs, rubs or gallops. Abdomen unremarkable and without evidence of organomegaly, masses, or abdominal aortic enlargement, bowel sounds are present in all 4 quadrants, no abdominal tenderness was noted. Extremities nonedematous, no cyanosis was noted, no clubbing was noted. Neuro: Cranial nerves II through XII are grossly intact, no focal motor deficits were noted, sensation to light touch and pinprick is intact, motor exam 5/5 throughout. Psych: Patient is alert and oriented x3, she does not appear anxious or depressed, she does not appear agitated. Patient was felt to be stable for discharge home on 07/07/2024, in addition I contacted the patient's PCP-Dr. Campbell Wallace in [place] and talk with him concerning her medical care. She would require being seen in 2 weeks and have an EKG done due to possible prolongation of MS interval with Vimpat. I also told Dr. Wallace that the patient needed to follow-up with neurology in 6 to 8 weeks which I asked for him to arrange. Patient was instructed not to drive until she is cleared by neurology. Weight / BMI Weight Weight: 113.9 kg Body Mass Index (BMI) 40.5 ABG / Lab / Microbiology Data 07/06/24 10:58 07/06/24 10:58 Laboratory: Laboratory Results - last 24 hr 07/06/24 12:20: Tricyclics Screen Negative, Ur Drug Screen Comment 07/06/24 19:15: Troponin T Hi Sens 4Hr 7 Radiography Diagnostic Testing: Radiology Impression Brain MRI 07/07/24 09:10 IMPRESSION: 1. No specific evidence of an acute or suspicious intracranial process. Small remote lacunar infarcts in the right caudate and mild/moderate supratentorial white matter presumed chronic microvascular ischemic changes. 2. Maxillary predominant paranasal sinus disease. 3. Additional description as above. Reading Location: [facility] D/C Instructions Discharge Diet: No restrictions Weight Bearing Status: Full weight bearing DC O2, CPAP, BIPAP Needs Home O2 Discharge instructions: No Meaningful Use Info Meaningful Use Meaningful Use Diagnoses (Choose all that apply): None applicable Ischemic Stroke Statin Dosing Therapy Reference: STATIN DOSE THERAPY REFERENCE: * Patients > 75 years receive moderate or high dose statin therapy. * Patients 75 years or YOUNGER should receive HIGH intensity statin dose unless contraindicated. You will be required to document reason for non-treatment if statin daily dose does not meet guidelines. HIGH DOSE STATIN THERAPY DAILY Atorvastatin > than or = to 40 mg Rosuvastatin > than or = to 20 mg Amlodipine + Atorvastatin > than or = to 2.5/40 mg Ezetimibe + Simvastatin 10/80 mg Simvastatin 80mg Discharge Plan Admission Admit Date/Time: 07/06/24 13:52 Primary Reason for Your Visit: New onset seizure disorder Attending Provider: Doni Monroe Primary Care Provider: Gage Owen Consulting Providers: Shade Hutson; Krishna Donahue; Mitra Mckeon; Ashley Gomez; Kalina Gomez; Cameron Javier; Lili Owens; Kush Hooks; Adrien Hobbs; Nael Rangel; Katie Smith; Jigar Avendaño; Germaine Romero; Ji Avitia; Earline Iyer; Usman Noe; Ba Duke; Hitesh Maradiaga; Irlanda Palumbo; Nicola Cooper; Darryl Lau; Esperanza Mack; Ranjan Troy; Rosalia Keene; CADENCE MATTA; Dinesh Keen; Dorene Miles Instructions Additional Instructions / Restrictions: He will need to see a neurologist in 6 to 8 weeks, Dr. Wallace will make this appointment for you at your office visit Discharge Orders/Prescriptions Prescriptions: New lacosamide [Vimpat] 100 mg tablet 100 mg PO BID Qty: 60 0RF Continued losartan 50 mg tablet 50 mg PO DAILY metoprolol succinate 100 mg tablet extended release 24 hr 100 mg PO DAILY fluvoxamine 25 mg tablet 12.5 mg PO QHS fluticasone propion-salmeterol [Advair HFA] 230-21 mcg/actuation HFA aerosol inhaler 1 puff INHALATION BID Referrals / Follow Up: Campbell Wallace MD [Non-Staff] - See Referral Note (In 2 weeks, you will need an EKG at that time and an appointment should be made by Dr. Wallace for you to see a neurologist) Gage Owen PA [Primary Care Provider] - Disposition Disposition (needs filled in before D/C Order can be placed): Home, Self Care Charges/Coding Visit Charges Inpatient E&M: 31813 Disch Hosp >30min
[2024-07-07 14:38] VITALS: BP 153/74; PULSE 78; RESP 18; TEMP 36.6; O2SAT 93
--- NOTE | 2024-07-07 15:02 | CHAPLAIN ---
Type of Pastoral Visit _x__ Initial Visit ___ Follow-up Visit ___ On-call Visit ___ General Patient Visit ___ Spiritual Assessment ___ Family Conference ___ Bereavement ___ Rapid Response ___ Code Blue ___ Other (describe below) Pastoral Care Referral From _x__ Patient ___ Family ___ Nurse ___ Physician ___ Pan Operator ___ X Ray Consultant ___ Other (describe below) Sacrament/Intervention _x__ Active listening ___ Anointing ___ Alevism ___ Bereavement ___ Communion ___ Haylee exploration ___ ___ Life review _x__ Prayer ___ Reconciliation ___ Sacrament of Sick ___ Supportive presence ___ Wedding ___ Other (describe below) Pastoral Comments patient gives information about her sudden health concern and how this is going to impact her transportation, family life, and her work; pt acknowledges that she has many people who are helping her; pt vocalizes her concerns about summer schedule and her job; supportive presence and listening ear; prayer given
--- NOTE | 2024-07-07 15:57 | PHA.DC_ITS ---
Pharmacy [facility] has performed discharge medication reconciliation and counseling for this patient. 1. LACOSAMIDE 100MG PO BID The patient's discharge medication list was reviewed for discrepancies and discrepancies were resolved. The patient was counseled on the following discharge medications and changes in medications for homegoing were reviewed. The Reason for Use, instructions for use, and potential side effects were reviewed for all new medications. The patient's questions regarding all of their medications were answered. The patient was able to verbally demonstrate an understanding of their discharge medications. Medications at Discharge Home Medications fluticasone propionate 230 mcg-salmeterol 21 mcg/actuation HFA inhaler (Advair HFA) 1 puff inhalation BID 07/06/24 fluvoxamine 25 mg tablet 12.5 mg PO QHS depression 07/06/24 losartan 50 mg tablet 50 mg PO DAILY cardiomyopathy 07/06/24 metoprolol succinate 100 mg tablet,extended release 24 hr 100 mg PO DAILY cardiomyopathy 07/06/24 lacosamide 100 mg tablet (Vimpat) 100 mg PO BID #60 tabs 07/07/24
== END 2024-07-07 14:36 | disposition home or self-care (01) ==
LOC: ED 13:49 → PCU 14:08
PROVIDERS: Emergency Provider Emergency Medicine; PCP Physician Assistant; Visit Provider Internal Medicine
DX: R56.9 Unspecified convulsions (principal); I42.9 Cardiomyopathy, unspecified; E66.813 Obesity, class 3; Z68.41 Body mass index [BMI] 40.0-44.9, adult; F32.A Depression, unspecified; F10.10 Alcohol abuse, uncomplicated; Z79.899 Other long term (current) drug therapy
CPT/HCPCS: 36415; 70450; 70553; 71045; 80053; 80307; 81001; 83605; 84484; 85025; 85610; 85730; 93005; 95819; 96360; 96361; 99221; 99285; A9575; A4216; G0378

== ENCOUNTER → 2024-11-21 | Outpatient (CLI) | payer OTHER, SELFPAY ==
[2024-11-21 12:21] LABS: Hematocrit 36.9 % (37-47); Hemoglobin 12.2 g/dL (12.0-15.0); Immature Granulocytes Count 0.010 X10^3/uL (0.0-0.0); Mean Corp Hgb Conc 33.1 g/dL (32-36); Mean Corpuscular Volume 94.4 fL (81-99); Mean Platelet Vol. 10.0 fl (6.2-12.0); NRBC Flagged by Analyzer 0 % (0-5); Platelet Count 182 K/mm3 (150-450); RBC Distribution Width CV 13.2 % (11.6-14.6); RBC Distribution Width SD 45.1 fl (35.1-43.9); Red Blood Count 3.91 M/mm3 (4.2-5.4); White Blood Count 4.7 K/mm3 (4.4-11.0)
[2024-11-21 14:21] LABS: AST(SGOT) 39 U/L (<=31); Alanine Aminotransfer ALT/SGPT 43 U/L (<=34); Albumin, Serum 4.4 g/dL (3.5-5.0); Alkaline Phosphatase 90 U/L (35-104); Anion Gap 11 (5-15); BUN 18 mg/dL (4-19); BUN/Creat Ratio 24.3 RATIO (10-20); Calcium,Total 9.6 mg/dL (7.6-11.0); Carbon Dioxide 25.4 mmol/L (21.0-32.0); Chloride 106 mmol/L (98-108); Globulin 2.5 g/dL (2.2-4.2); Glucose 96 mg/dL (70-99); Magnesium 2.2 mg/dL (1.5-2.2); Potassium 4.6 mmol/L (3.3-5.1); Vitamin B12 826 pg/mL (180-914)
[2024-11-25 22:07] LABS: Folate, Hemolysate Test 543.0 ng/mL (Not Estab.); Folate, RBC (Hct) Test 37.9 % (34.0-46.6); Folates, RBC Test 1433 ng/mL (>498); Vitamin B1, Thiamine 126.3 nmol/L (66.5-200.0)
== END | disposition home or self-care (01) ==
LOC: MTLAB 10:34
PROVIDERS: PCP Family Medicine
DX: R51.9 Headache, unspecified (principal); R56.9 Unspecified convulsions; Z86.73 Personal history of transient ischemic attack (TIA), and cerebral infarction without residual deficits
CPT/HCPCS: 36415; 80053; 82607; 82747; 83735; 84425; 84443; 85014; 85025